=== PATIENT | female | born 1980 | race Two or more races ===

== ENCOUNTER 2024-03-21 18:07 | Emergency (ER) | payer MEDICAID, OTHER ==
[~2024-03-21] VITALS: Ht 157.5 cm; Wt 59.0 kg
[2024-03-21 18:14] VITALS: O2SAT 96
[2024-03-21] MEDS: SODIUM CHLORIDE 0.9% 1,000 ML IV ONE (18:41)
[2024-03-21] MEDS: ONDANSETRON HCL 4 MG/2 ML VIAL IV ONE (19:23)
[2024-03-21] MEDS: MORPHINE SULFATE 4 MG/ML SYR/VIAL IV ONE (19:30)
--- NOTE | 2024-03-21 19:43 | DVH ---
TRANSABDOMINAL PELVIC ULTRASOUND CLINICAL HISTORY: pelvic pain, vag bleed TECHNIQUE: Multiple grayscale ultrasound images were obtained of the pelvis via transabdominal appro ach. Limited color Doppler and spectral Doppler acquisitions were also obtained. COMPARISON: None FINDINGS: Uterus: 13.6 x 10.8 x 7.3 cm. The uterine contour is smooth. No myometrial masses are seen. Endometrium: 2.5 cm. No endometrial mass is seen. Increased vascularity. Cystic space in the endometr ium measures 7 mm Right adnexa: right ovary is not visual. No right adnexal mass seen. Left adnexa: left ovary 3.5 x 2.0 x 3.5 cm. Normal arterial blood flow in the ovary. No left adnexal mass seen. Small cyst in the left ovary measuring 1.7 cm Other: None IMPRESSION: 1. Thickened endometrium with increased vascularity and a tiny cystic space. DDX includes endometrial hyperplasia, endometrial polyp, submucosal uterine fibroid ; endometrial cancer is in the differenti al, correlate with results of reported recent endometrial scraping. 2. Nonvisualization of the right ovary. 3. Normal left ovary
[2024-03-21 19:56] LABS: Basophils # (auto) 0 10 ^3/uL (0-0.2); Basophils % (auto) 0.2 % (0.0-2.0); Eosinophils # (auto) 0 10 ^3/uL (0-0.8); Hemoglobin 11.1 g/dL (12.2-16.2); Lymphocytes # (auto) 1.7 10 ^3/uL (0.4-5.4); Monocytes # (auto) 0.6 10 ^3/uL (0-1.3)
[2024-03-21 19:58] LABS: Eosinophils % (auto) 0.6 % (0.0-7.0); Lymphocytes % (auto) 34.4 % (10.0-50.0); Mean Corpuscular Hemoglobin 30.6 pg (28.0-32.0); Mean Corpuscular Hgb Conc. 33.8 g/dL (32.0-36.0); Mean Corpuscular Volume 90.5 fL (80.0-100.0); Monocytes % (auto) 12.6 % (0.0-12.0); Neutrophils # (auto) 2.5 10 ^3/uL (1.6-8.6); Neutrophils % (auto) 52.2 % (37.0-80.0); Nucleated Red Blood Cells % 0.5 %; Platelet Count (auto) 47 10^3/uL (140-450); Red Blood Cells 3.65 10^6/uL (4.0-5.20); White Blood Cell 4.8 10^3/uL (4.4-10.8)
--- NOTE | 2024-03-21 20:01 | ED.PDOC ---
[employer]INESS [employer] HPI Comments 43 year old female brought in by EMS presents to the ED with a chief complaint of pelvic pain onset 3 days. Patient states she began her menstrual cycle about 3 days ago, noticed it was heavier than usual with blood clots as well as nausea, vomiting, bilateral flank pain, headache and dizziness. Patient has a history of uterine fibroids and had a D&C/fibroidectomy at [facility] [place] about 3 weeks ago. She also states she has Leukemia, has not seen Oncologist for 5 months but has continued taking chemo medication daily. Patient has been having issues with insurance but has an upcoming appointment with her new PCP. Denies fever, dysuria, chest pain, shortness of breath. No other symptoms or modifying factors present at this time. Chief Complaint: Vaginal Bleed Time Seen by MD: 19:41 Reviewed Notes: Medications, Allergies Allergies: Coded Allergies: NO KNOWN ALLERGIES (Unverified , 03/21/24) Information Source: Patient Mode of Arrival: EMS Timing: Days Prehospital treatment: None Severity: Moderate Vaginal Discharge: None Vaginal Lesions: None Bleeding Quality: Clotted Vaginal Mass: None Onset Of Mass/Bleeding: Menstrual Symptoms of Possible : None Associated Signs and Symptoms: Vaginal Bleeding, N/V Past Medical History PAST MEDICAL HISTORY: Cancer Surgical History (Other): Fibroidectomy, d&c [employer] History: Uterine Fibroids Family History Family History: Unknown Social History Smoker: Non-Smoker Alcohol: Denies ETOH Use Drugs: Denies Drug Use Lives In: Home Genitourinary: reports: abnormal vagina bleeding, flank pain, pain All Other Systems: Reviewed and Negative (Comprehensive systems review obtained and negative except for what is stated in the HPI.) Physical Exam General Appearance: No Apparent Distress, Normal HEENT: Other (moist mucous membranes, pupils symmetric, no facial asymmetry) Neck: Full Range of Motion, Normal Inspection Respiratory: Lungs Clear, No Accessory Muscle Use, No Respiratory Distress, Normal Breath Sounds Cardiovascular: No Edema, No JVD, Regular Rate/Rhythm Breast Exam: Deferred Gastrointestinal: Soft, Suprapubic, Tenderness Genitalia: Deferred Pelvic: Deferred Rectal: Deferred Extremities: Normal inspection, Normal range of motion, Non-tender, No pedal edema Neurologic: Alert, No Motor Deficits, Normal Affect, Normal Mood, No Sensory Deficits Cerebellar Function: NOT DONE Reflexes: NOT DONE Skin: Dry, Normal Color, Warm Lymphatic: NOT DONE Was a procedure done? Was a procedure done?: No Differential Diagnosis ([employer]) Vaginal Bleeding: Dysmenorrhea, Menorrhagia, Menstrual Bleeding, UTI Mass / Lesion: PID Comments Anemia, ovarian torsion, among others X-Ray, Labs, Meds, VS Vital Signs Date Time Temp Pulse Resp B/P (MAP) Pulse Ox O2 Delivery O2 Flow Rate FiO2 03/21/24 19:30 79 11 109/57 03/21/24 18:14 98.8 74 20 133/75 (94) 96 Lab Test 03/21/24 19:23 03/21/24 19:22 Range/Units Urine Color Light-red Yellow Urine Clarity Turbid H Clear Urine pH 8.0 5.0-9.0 Urine Specific Sherman 1.007 1.001-1.035 Urine Protein 2+ H Negative Urine Ketones Negative Negative Urine Blood 3+ H Negative /uL Urine Nitrite Negative Negative Urine Bilirubin Negative Negative Urine Urobilinogen Normal Negative mg/dL Urine Leukocyte Esterase 1+ Negative /uL Urine RBC 179 0 - 4 /hpf Urine WBC 84 0 - 5 /hpf Urine Squamous Epithelial Cells Few <5 /hpf Urine Bacteria Few H None Seen /hpf Urine Glucose Normal Normal mg/dL White Blood Count 4.8 4.4-10.8 10^3/uL Red Blood Count 3.65 L 4.0-5.20 10^6/uL Hemoglobin 11.1 L 12.2-16.2 g/dL Hematocrit 33.0 L 36.0-46.0 % Mean Corpuscular Volume 90.5 80.0-100.0 fL Mean Corpuscular Hemoglobin 30.6 28.0-32.0 pg Mean Corpuscular Hemoglobin Concent 33.8 32.0-36.0 g/dL Red Cell Distribution Width 24.1 H 11.8-14.3 % Platelet Count 47 L 140-450 10^3/uL Mean Platelet Volume 8.2 6.9-10.8 fL Neutrophils (%) (Auto) 52.2 37.0-80.0 % Lymphocytes (%) (Auto) 34.4 10.0-50.0 % Monocytes (%) (Auto) 12.6 H 0.0-12.0 % Eosinophils (%) (Auto) 0.6 0.0-7.0 % Basophils (%) (Auto) 0.2 0.0-2.0 % Neutrophils # (Auto) 2.5 1.6-8.6 10 ^3/uL Lymphocytes # (Auto) 1.7 0.4-5.4 10 ^3/uL Monocytes # (Auto) 0.6 0-1.3 10 ^3/uL Eosinophils # (Auto) 0 0-0.8 10 ^3/uL Basophils # (Auto) 0 0-0.2 10 ^3/uL Nucleated Red Blood Cells 0.5 % Platelet Estimate Decreased Anisocytosis (manual) Moderate Prothrombin Time 10.9 9.3-11.8 sec Prothrombin Time INR 1.03 0.9-1.15 Activated Partial Thromboplast Time 26.3 24.5-34.5 SEC Sodium Level 139 136-145 mmol/L Potassium Level 3.8 3.5-5.1 mmol/L Chloride Level 106 98-107 mmol/L Carbon Dioxide Level 25 20-31 mmol/L Anion Gap 8 5-15 Blood Urea Nitrogen 8 L 9-23 mg/dL Creatinine 0.68 0.550-1.02 mg/dL Glomerular Filtration Rate Calc 109 >90 mL/min BUN/Creatinine Ratio 11.8 10.0-20.0 Serum Glucose 96 74-106 mg/dL Calcium Level 9.5 8.7-10.4 mg/dL Total Bilirubin 0.6 0.2-1.0 mg/dL Aspartate Amino Transferase (AST) 31 13-40 U/L Alanine Aminotransferase (ALT) 35 7-40 U/L Alkaline Phosphatase 96 46-116 U/L Total Protein 6.8 5.7-8.2 g/dL Albumin 4.3 3.2-4.8 g/dL Beta HCG, Quantitative 1.4 L 1.5-4.2 mIU/mL Current Medications Medications (Trade) Dose Ordered Sig/Heidy Route Start Time Stop Time Status Last Admin Sodium Chloride 1,000 ml @ 1,000 mls/hr Q1H ONCE IV 03/21/24 18:30 03/21/24 19:29 DC 03/21/24 18:41 Morphine Sulfate 4 mg ONCE ONCE IV 03/21/24 18:30 03/21/24 18:31 DC 03/21/24 19:30 Ondansetron HCl (Zofran) 4 mg ONCE ONCE IV 03/21/24 18:30 03/21/24 18:31 DC 03/21/24 19:23 Ceftriaxone Sodium 50 ml @ 100 mls/hr ONCE ONCE IV 03/21/24 20:15 03/21/24 20:44 DC 03/21/24 20:50 PROCEDURE(s): PELUS - PELVIC REASON: pelvic pain, vag bleed ORDER NUMBER(s): [id number], ACCESSION NUMBER(s): [id number] TRANSABDOMINAL PELVIC ULTRASOUND CLINICAL HISTORY: pelvic pain, vag bleed TECHNIQUE: Multiple grayscale ultrasound images were obtained of the pelvis via transabdominal approach. Limited color Doppler and spectral Doppler acquisitions were also obtained. COMPARISON: None FINDINGS: Uterus: 13.6 x 10.8 x 7.3 cm. The uterine contour is smooth. No myometrial masses are seen. Endometrium: 2.5 cm. No endometrial mass is seen. Increased vascularity. Cystic space in the endometrium measures 7 mm Right adnexa: right ovary is not visual. No right adnexal mass seen. Left adnexa: left ovary 3.5 x 2.0 x 3.5 cm. Normal arterial blood flow in the ovary. No left adnexal mass seen. Small cyst in the left ovary measuring 1.7 cm Other: None IMPRESSION: 1. Thickened endometrium with increased vascularity and a tiny cystic space. DDX includes endometrial hyperplasia, endometrial polyp, submucosal uterine fibroid ; endometrial cancer is in the differential, correlate with results of reported recent endometrial scraping. 2. Nonvisualization of the right ovary. 3. Normal left ovary X-Ray, Labs, Meds, VS Comment 43-year-old female with history of leukemia and recent uterine fibroidectomy/D&C complaining of pelvic pain and vaginal bleeding. Vitals unremarkable Exam remarkable for suprapubic tenderness to palpation. No tenderness to percussion. No rebound or guarding. Rhythm strip independently interpreted by me: Sinus rhythm, rate 75, no ectopy. Pelvic ultrasound: IMPRESSION: 1. Thickened endometrium with increased vascularity and a tiny cystic space. DDX includes endometrial hyperplasia, endometrial polyp, submucosal uterine fibroid ; endometrial cancer is in the differential, correlate with results of reported recent endometrial scraping. 2. Nonvisualization of the right ovary. 3. Normal left ovary CBC remarkable for hemoglobin 11.1, hematocrit 33, basic metabolic panel unremarkable, coagulation panel normal, hCG negative, UA abnormal consistent with UTI Patient treated with the following in the ED: L 0.9 normal saline IV bolus, morphine 4 mg IV, Zofran 4 mg IV, Rocephin 1 g IV On re-evaluation, patient states pain has improved. Vitals are stable. She appears hemodynamically stable. Hospitalization was considered, however patient had rapid improvement of symptoms with treatment in the ED, and I no longer feel hospitalization is necessary. Patient appears stable for outpatient treatment with oral antibiotics, pain medication and close follow-up with her OBGYN or primary physician. Rx Keflex, ibuprofen, Tylenol, Zofran Time of 1ST Reevaluation: 20:11 Reevaluation 1ST: Unchanged Time of 2ND Reevaluation: 21:05 Reevaluation 2ND: Improved Patient Education/Counseling: Diagnosis, Treatment, Prognosis Family Education/Counseling: No Family Present Departure 1 Departure Time of Disposition: 21:07 Impression: Primary Impression: UTI (urinary tract infection) Qualified Codes: N39.0 - Urinary tract infection, site not specified; R31.9 - Hematuria, unspecified Disposition: 01 HOME / SELF CARE / HOMELESS Condition: Stable Additional Instructions: Your lab tests showed you have a urinary tract infection, which likely is the cause of your pain. I have prescribed antibiotics and pain medication. Your ultrasound report is below. Follow-up with your primary doctor or OBGYN in 1-2 days. Return to ER for persistent or worsening symptoms. [place] [id number] Ph: [phone] DIAGNOSTIC IMAGING Diagnostic Imaging Report : [id number] Signed PATIENT: CLAUDIA ALONSO ACCT: [id number] UNIT: [id number] : 1980 LOC: ER ROOM / BED: / AGE / SEX: 43 / F ADM STATUS: REG ER SERVICE 27 ORDERING PHYSICIAN: TONY BECKFORD MD PROCEDURE(s): PELUS - PELVIC REASON: pelvic pain, vag bleed ORDER NUMBER(s): [id number], ACCESSION NUMBER(s): [id number] TRANSABDOMINAL PELVIC ULTRASOUND CLINICAL HISTORY: pelvic pain, vag bleed TECHNIQUE: Multiple grayscale ultrasound images were obtained of the pelvis via transabdominal approach. Limited color Doppler and spectral Doppler acq uisitions were also obtained. COMPARISON: None FINDINGS: Uterus: 13.6 x 10.8 x 7.3 cm. The uterine contour is smooth. No myometrial masses are seen. Endometrium: 2.5 cm. No endometrial mass is seen. Increased vascularity. Cystic space in the endometrium measures 7 mm Right adnexa: right ovary is not visual. No right adnexal mass seen. Left adnexa: left ovary 3.5 x 2.0 x 3.5 cm. Normal arterial blood flow in the ovary. No left adnexal mass seen. Small cyst in the left ovary measuring 1.7 cm Other: None IMPRESSION: 1. Thickened endometrium with increased vascularity and a tiny cystic space. DDX includes endometrial hyperplasia, endometrial polyp, submucosal uterine fibroid ; endometrial cancer is in the differential, correlate with results of reported recent endometrial scraping. 2. Nonvisualization of the right ovary. 3. Normal left ovary ATED BY: MARCELA TIJERINA MD DICTATED DATE/TIME: 03/21/241940 e-Prescriptions Ondansetron Odt 4MG Tab (ZOFRAN PO) 4 Mg Tb 4 MG PO TID PRN, #30 TAB prn n/v ODT TAB-DISSOLVE IN MOUTH, THEN SWALLOW Prov: TONY BECKFORD MD 03/21/24 Ibuprofen Micronized (Ibuprofen) 800 Mg Tab 800 MG PO Q8HP PRN, #30 TAB prn pain, take with food Prov: TONY BECKFORD MD 03/21/24 Acetaminophen (Tylenol Extra Strength) 500 Mg Tab 1000 MG PO Q6HP PRN, #30 TAB prn pain Prov: TONY BECKFORD MD 03/21/24 Cephalexin Monohydrate (Cephalexin) 500 Mg Cap 1 CAP PO QID for 10 Days, #40 CAP Prov: TONY BECKFORD MD 03/21/24 Discharged With: Relative Critical Care Note Critical Care Time?: No Stability Stability form required: No Heart Score Heart Score: Heart Score Response (Comments) Value History N/A 0 EKG N/A 0 Age N/A 0 Risk Factors N/A 0 Troponin N/A 0 Total 0 I personally scribed for TONY BECKFORD MD ([email or web address]) on 03/21/24 at 20:01. Electronically submitted by Debbie Hartman ([email or web address]). TONY BECKFORD MD Mar 21, 2024 20:01
[2024-03-21 20:05] LABS: Urine Bacteria FEW /hpf (None Seen); Urine Blood 3+ /uL (Negative); Urine Clarity Turbid (Clear); Urine Color Light-Red (Yellow); Urine Protein, UAD 2+ (Negative); Urine Specific Gravity 1.007 (1.001-1.035); Urine Urobilinogen Normal (Negative); Urine WBC 84 /hpf (0 - 5)
[2024-03-21 20:06] LABS: Alanine Aminotransferase 35 U/L (7-40); Albumin 4.3 g/dL (3.2-4.8); Alkaline Phosphatase 96 U/L (46-116); Anion Gap 8 (5-15); Aspartate Aminotransferase 31 U/L (13-40); BUN/Creatinine Ratio 11.8 (10.0-20.0); Bilirubin, Total 0.6 mg/dL (0.2-1.0); Calcium 9.5 mg/dL (8.7-10.4); Carbon Dioxide 25 mmol/L (20-31); Chloride 106 mmol/L (98-107); Glucose 96 mg/dL (74-106); Potassium 3.8 mmol/L (3.5-5.1); Sodium 139 mmol/L (136-145); Total Protein 6.8 g/dL (5.7-8.2)
[2024-03-21 20:07] LABS: Blood Urea Nitrogen 8 mg/dL (9-23)
[2024-03-21 20:25] LABS: INR 1.03 (0.9-1.15); Partial Thromboplastin Time 26.3 SEC (24.5-34.5); Prothrombin Time 10.9 sec (9.3-11.8)
[2024-03-21 20:32] LABS: Red Cell Distribution Width 24.1 % (11.8-14.3)
[2024-03-21 20:33] LABS: Anisocytosis Moderate; Platelet Estimate Decreased
[2024-03-21] MEDS: cefTRIAXone 1GM/50ML D5W 50 ML IV ONE (20:50)
[2024-03-21] MEDS ORDERED: ACET-1304 PO (21:14)
[2024-03-21] MEDS ORDERED: CEPH500C PO (21:14)
[2024-03-21] MEDS ORDERED: ZOFR4T PO (21:14)
[2024-03-21] MEDS ORDERED: IBUP-1455 PO (21:14)
[2024-03-21 21:57] VITALS: BP 117/64; PULSE 73; RESP 14
== END 2024-03-21 23:27 | disposition home or self-care (01) ==
LOC: ER 18:07 → EDBD 18:07 → ER 23:27
DX: N39.0 Urinary tract infection, site not specified (principal); N93.9 Abnormal uterine and vaginal bleeding, unspecified; R93.89 Abnormal findings on diagnostic imaging of other specified body structures; Z86.018 Personal history of other benign neoplasm
CPT/HCPCS: 36415; 76856; 80053; 81001; 84702; 85025; 85610; 85730; 86850; 86900; 86901; 96361; 96365; 96375; 99285; J0696; J2270; J2405; J7030